=== PATIENT | male | born 1995 | race Caucasian/White ===

== ENCOUNTER 2019-10-19 11:50 | Emergency (ER) | payer OTHER, SELFPAY ==
[2019-10-19 11:52] VITALS: BP 152/86; PULSE 124; RESP 16; TEMP 38.6; O2SAT 100; BMI 23.1
--- NOTE | 2019-10-19 12:14 | RAD_ITS ---
STUDY: X-RAY CHEST REASON FOR EXAM: Male, 24 years old. COUGH, PT STATES BODY ACHES TECHNIQUE: PA and lateral views of the chest. COMPARISON: None. FINDINGS: Hyperinflation. The lungs are clear. There is no demonstrated pleural abnormality. Sternal cerclage wires are present from a prior sternotomy. The patient is status post mitral and aortic valve replacement. Normal mediastinum and deb. Normal visualized pulmonary arteries. Normal visualized aortic arch and descending thoracic aorta. Normal visualized thoracic spine. Normal visualized ribs, clavicles, and shoulders. There is no demonstrated abnormality of the visualized soft tissue structures of the upper abdomen. RAD/Chest PA and Lateral IMPRESSION: Lungs are clear. Prosthetic mitral and aortic valves. Electronically Signed: Floyd Morfin, at 12:59 EST , Service support ,
[2019-10-19] MEDS: Ibuprofen 600 MG Tablet PO (12:23)
--- NOTE | 2019-10-19 12:58 | ED.RN ---
Lab called with positive flu b, Terence Woods RN, informed of same.
--- NOTE | 2019-10-19 13:06 | ED.VISSUMM ---
- ER Visit Summary Date of Service: 10/19/19 Chief Complaint: Fever History of Present Illness: The patient is a 24 M with no primary care physician. Patient reports he has a fever that began abruptly yesterday. He did not take this at home. However he had chills, cold sweats, myalgias, and a cough. He reports his cough is productive green sputum without blood. He is had nausea without vomiting. He complains of a headache that was 8 out of 10 at worst and 4-10 currently. States that this is really only with movement of his eyes and is retro-orbital. He also complains of generalized weakness. Patient reports that he returned from a mission trip to [facility] 4 days ago. This was a 9-day visit. He denies being bit by mosquitoes. He states this is the third time is gone a mission trip in the past year and he has not had any problems. He did not get any vaccinations prior to going. Physical Examination: Vitals: 101.4, 152/86, 124, 16, 100% on room air which is not hypoxic. General: Well-nourished and well-developed. Head: Normocephalic atraumatic. Neck: Supple, no lymphadenopathy. No JVD. Nontender. Cardiovascular: Regular rate and rhythm. No murmurs. Respiratory: No respiratory distress. Clear to auscultation bilaterally. Abdominal: Soft, nontender, nondistended, normal bowel sounds. No guarding, rebound, or peritoneal signs. Back: Nontender. Extremities: Nontender, no edema. Skin: Normal color, no rash. Neurologic: Alert and oriented ?3. Cranial nerves II through XII are intact. Normal strength and sensation. Psych: Normal affect. Test Results: Chest x-ray shows chronic changes. No infiltrate. He is positive for influenza B. Emergency Department Course and Treatment: Patient was treated with ibuprofen and Tamiflu p.o. He is resting comfortably. Treatment Plan: At this point I do not think any further work-up for the possibility of dengue fever or malaria is necessary. He will be discharged with Tamiflu and symptomatic care. Instructed to follow-up Dr. Yeager in 1 week if not improving. Return to the emergency department for any worsening symptoms. Disposition: To home in improved and stable condition. Impression: 1. Influenza B. This note was generated with [employer] software. It may contain incorrect words, spelling, and punctuation that were not noted in review of the chart prior to signing ED Disposition - Plan for ED Patient: Instructions: INFLUENZA (Adult) Prescriptions: Oseltamivir Phosphate [Tamiflu] 75 mg PO BID #10 capsule Referrals: Rosy Yeager DO [STAFF PHYSICIAN] - 1 Week if not improving
[2019-10-19] MEDS: Oseltamivir Phosphate 75 MG Capsule PO (13:16)
[2019-10-19 13:18] VITALS: BP 142/79; PULSE 84; RESP 16; O2SAT 98
== END 2019-10-19 13:19 | disposition home or self-care (01) ==
PROVIDERS: Emergency Provider Emergency Medicine
DX: J10.89 Influenza due to other identified influenza virus with other manifestations (principal); R11.0 Nausea; Q87.40 Marfan syndrome, unspecified; Z72.0 Tobacco use; Z79.82 Long term (current) use of aspirin; Z79.899 Other long term (current) drug therapy
CPT/HCPCS: 71046; 87804; 99283